=== PATIENT | female | born 1945 | race Caucasian/White ===

== ENCOUNTER 2017-02-10 12:03 | Emergency (ER) | payer MEDICARE ==
[~2017-02-10] VITALS: Ht 162.6 cm; Wt 60.0 kg
[~2017-02-10 12:03] MED LIST: ARIP882S PO; ASPI325T4 PO; BENZ1TAB61 PO; DIAZ5TAB PO; Enoxaparin Sodium SQ; FAMO20TA7 PO; FERR325T35 PO; HALO5AMP3 IM; LISI5TAB7 PO; LORA2TAB99 PO; QUET200T4 PO; SIMV20TA PO
[2017-02-10 12:10] VITALS: BP 153/79
[2017-02-10 13:19] LABS: BLOOD UREA NITROGEN 13 mg/dL (7-18)
[2017-02-10 13:22] LABS: ASPARTATE AMINO TRANSFERASE 11 U/L (15-37)
== END 2017-02-10 21:56 ==
LOC: ED 18:19
DX: I82.409 Acute embolism and thrombosis of unspecified deep veins of unspecified lower extremity (principal); E11.9 Type 2 diabetes mellitus without complications; F03.90 Unspecified dementia, unspecified severity, without behavioral disturbance, psychotic disturbance, mood disturbance, and anxiety; F20.9 Schizophrenia, unspecified; I10 Essential (primary) hypertension; I48.91 Unspecified atrial fibrillation; R32 Unspecified urinary incontinence; Z87.891 Personal history of nicotine dependence; Z90.710 Acquired absence of both cervix and uterus
CPT/HCPCS: 36415; 71010; 80053; 82010; 82800; 85025; 85610; 93005; 93970; 99285